=== PATIENT | male | born 1950 | race Caucasian/White ===

== ENCOUNTER → 2016-09-21 | Outpatient (CLI) | payer MEDICARE, OTHER ==
--- NOTE | 2016-09-21 16:55 | REP ---
CT MAXILLOFACIAL WITHOUT CONTRAST: 09/21/2016: Comparison: 09/30/2010. Clinical history: Chronic sinusitis. Previous turbinectomies. Findings: The noncontrast images with coronal reconstructions show prior partial ethmoidectomy, middle turbinectomy and uncinectomies. This appearance is similar to previous study. There is mucosal thickening along the medial and lateral ramon of the left maxillary antrum which is increased in thickness compared to previous study. There is minimal mucosal thickening inferiorly and medially in the right maxillary antrum. Nasal septum is deviated towards the right but very mild. There is mucosal thickening in the ethmoid air cells bilaterally. Frontal sinuses show some mucosal thickening on the right but not the left. The sphenoid sinuses show mucosal thickening anteriorly. No bony destructive lesions are noted about the sinuses, orbital floor, medial orbital ramon, orbital struts and zygomatic arches all intact. Nasal bones and the nasal spine of the maxilla intact. Orbits and contents symmetric and grossly normal. Mastoids show symmetric normal aeration. No other findings. Impression: 1. Postoperative changes and mucosal thickening of the maxillary antra as described above. The ethmoid sinuses show less mucosal thickening and there is minor mucosal thickening anteriorly in the sphenoid air cells bilaterally and the right frontal sinus posteriorly. Signed by Hiro Chery MD 09/21/2016 05:15 P
== END ==
LOC: M RAD 16:06
DX: J32.2 Chronic ethmoidal sinusitis (principal)

== ENCOUNTER → 2016-11-05 | Outpatient (CLI) | payer MEDICARE, OTHER ==
[~2016-11-05] MED LIST: CALC-195 PO; FLON1SPR; IBUP600T26 PO; MULT1TAB9 PO; SYMB16INH INH; VITA1CAP7 PO
--- NOTE | 2016-11-05 13:51 | ECGEPIP ---
Stationary ECG Study [facility] Test Date: 2016-11-05 Pat Name: FAISAL GOMEZ Department: Room: - Gender: M First Aid Nurse: INESSA : 1950 Requested By: JAVIER Klein Order Number: [id number] Reading MD: Deepak Whitlock Measurements Intervals [place] Rate: 62 P: 63 CO: 161 QRS: 48 QRSD: 89 T: 24 QT: 403 QTc: 411 Interpretive Statements Normal sinus rhythm at 62 bpm. Somewhat low voltages Nonspecific ST/T-wave abnormalities No change from 08/24/14. Electronically Signed On 11-05-2016 13:51:10 EDT by Deepak Whitlock
== END ==
LOC: M EKG 07:48
PROVIDERS: ATTEND Anesthesiology
DX: G47.30 Sleep apnea, unspecified (principal)

== ENCOUNTER → 2016-11-11 | Day surgery (SDC) | payer MEDICARE, OTHER ==
[~2016-11-11] VITALS: Ht 167.6 cm; Wt 65.8 kg
[~2016-11-11] MED LIST changes: +BUPIVACAINE HCL 0.25% 30 ML VIAL As Ordered ONE; +GLYCOPYRROLATE INJ 0.2 MG/ML 2 ML VIAL As Ordered ONE; +IBUPROFEN 400 MG TAB PO ONE; +KETOROLAC 30 MG/ML VIAL (J1885) IV PRN; +KETOROLAC 60 MG/2 ML VIAL (J1885) As Ordered ONE; +LIDOCAINE 1% SDV INJ 30 ML VIAL As Ordered ONE; +LIDOCAINE 2% INJ 100 MG/5 ML SDV (FOR ANES.) As Ordered ONE; +LR 1,000 ML IV SCH; +METOCLOPRAMIDE INJ 10MG/2ML VIAL (J2765) IV PRN; +MIDAZOLAM INJ 2 MG/2 ML VIAL (J2250) As Ordered ONE; +MORPHINE 2 MG/ML 1ML SYRINGE IV PRN; +NEOSTIGMINE 1MG/ML 5 ML SYRINGE (J2710) As Ordered ONE; +NORC1TAB4 PO; +NORCO, ANEXSIA 5/325MG TABLET (HYDROcodone/ACETAMINOPHEN) PO PRN; +ONDANSETRON 4MG/2ML VIAL (J2405) As Ordered ONE; +ONDANSETRON 4MG/2ML VIAL (J2405) IV PRN; +PERCOCET 5MG/325MG TAB PO PRN; +PROPOFOL 200 MG/20 ML VIAL As Ordered ONE; +ROCURONIUM BROMIDE 50 MG/5 ML VIAL As Ordered ONE; +fentaNYL 100 MCG/2 ML INJECTION (J3010) IV PRN; +fentaNYL 250 MCG/5 ML INJECTION (J3010) As Ordered ONE
[2016-11-11 14:05] VITALS: BP 135/85
--- NOTE | 2016-11-11 19:37 | RO ---
DATE OF PROCEDURE: 11/11/2016 PREOPERATIVE DIAGNOSIS: Bilateral inguinal hernia. POSTOPERATIVE DIAGNOSIS: Bilateral inguinal hernia. PROCEDURE: Robotic-assisted laparoscopic bilateral inguinal hernia repair, transabdominal preperitoneal hernioplasty ([place]). SURGEON: Dr. Corea. DIET SUPERVISOR: Marivel Castillo ESTIMATED BLOOD LOSS: Less than 25 mL. COMPLICATIONS: None. REMARKS: The patient has a moderate sized left indirect and small size right indirect inguinal hernia. A large Bard 3-D Max light mesh was placed on the left side. A medium size 3-D Max light mesh was placed on the right side. PROCEDURE NOTE: Mr. Guerrero is a 66-year-old gentleman who came my clinic with a symptomatic left inguinal hernia on his ultrasound study done by his primary care doctor. There was also an incidental right inguinal hernia. These were both clinically confirmed on my exam. He was advised bilateral inguinal hernia repair. This was felt to be most appropriate with a laparoscopic approach. He presents today for said repair. DESCRIPTION OF PROCEDURE: The patient received Ancef preoperatively for prophylaxis. He was then brought to the operating room, placed in the lithotomy position. General endotracheal anesthesia started without any complication. Mercer catheter placed to decompress the urinary bladder. His abdomen and groin area prepped and draped in usual sterile fashion. After surgical time-out we began our surgery. A small incision created superior to the umbilicus with a Veress needle inserted. Intraabdominal insufflation started at pressure of 15 mmHg. Using the same incision a 5 mm port was placed under direct vision of laparoscope. He was placed in slight Trendelenburg position. Left side was tilted up to further expose the more symptomatic left inguinal hernia. Two working ports were placed around the left and right side along the umbilical line. On diagnostic laparoscopy both hernias were confirmed present. The left side was containing some omentum which was easily reduced. We started with the more symptomatic side. On the left side, the peritoneum overlying the inguinal area was opened up starting at the medial umbilical ligament in an arc like fashion going towards the level of the anterior-superior iliac spine. We slowly peeled off the peritoneum exposing the preperitoneal space, working toward the medial side where we further exposed to the pubic tubercle. The hernia sac was reduced. There was small cord lipoma along the inside of the hernia, which was reduced and removed. We furthered the dissection to accommodate the mesh down towards the iliopubic tract inferiorly. After checking for hemostasis, a large 3-D Max light mesh was placed onto the preperitoneal space adequately covering the hernia defect. This was secured into the pubic tubercle using a single stitch of #2-0 Vicryl. Again we checked for hemostasis. The peritoneum was then closed using #2-0 V-Loc in a running fashion. In similar fashion, the preperitoneal space was dissected on the right side and dissected widely from the pubic tubercle and symphysis pubis medially to the level of anterior-superior iliac spine, laterally and the iliopubic tract inferiorly. The hernia sac was easily reduced. There was nothing inside the hernia defect. I chose a medium sized mesh as this was a smaller hernia. Again, secured along the pubic tubercle and Octavio's ligament with a #2-0 Vicryl then we closed the peritoneum overlying the area with #2-0 V-Loc. Prior to coming out we removed cord lipoma into a 5 mm Endo bag and retrieved this outside. I scrubbed back in. The abdomen was then deflated. All ports removed. The incisions were closed with #4-0 Monocryl in subcuticular fashion. Dermabond was used for wound coverage. Bilateral ilioinguinal blocks were placed also local anesthesia at the incision lines. The patient promptly awakened, extubated, as well as catheter removed and brought to recovery room, stable.
== END | disposition home or self-care (01) ==
LOC: M SDC 05:31
PROVIDERS: ATTEND Surgery
DX: K40.20 Bilateral inguinal hernia, without obstruction or gangrene, not specified as recurrent (principal); J45.909 Unspecified asthma, uncomplicated; J32.9 Chronic sinusitis, unspecified; J42 Unspecified chronic bronchitis; E78.00 Pure hypercholesterolemia, unspecified; G47.33 Obstructive sleep apnea (adult) (pediatric); R06.83 Snoring; Z79.899 Other long term (current) drug therapy
CPT/HCPCS: 49650; 88302; C1781; J0690; J1885; J2250; J2405; J2710; J3010

== ENCOUNTER → 2017-07-05 | Outpatient (CLI) | payer MEDICARE, OTHER ==
[~2017-07-05] MED LIST changes: -BUPIVACAINE HCL 0.25% 30 ML VIAL As Ordered ONE; -GLYCOPYRROLATE INJ 0.2 MG/ML 2 ML VIAL As Ordered ONE; +IBUP-1022 PO; -IBUP600T26 PO; -IBUPROFEN 400 MG TAB PO ONE; -KETOROLAC 30 MG/ML VIAL (J1885) IV PRN; -KETOROLAC 60 MG/2 ML VIAL (J1885) As Ordered ONE; -LIDOCAINE 1% SDV INJ 30 ML VIAL As Ordered ONE; -LIDOCAINE 2% INJ 100 MG/5 ML SDV (FOR ANES.) As Ordered ONE; -LR 1,000 ML IV SCH; -METOCLOPRAMIDE INJ 10MG/2ML VIAL (J2765) IV PRN; -MIDAZOLAM INJ 2 MG/2 ML VIAL (J2250) As Ordered ONE; -MORPHINE 2 MG/ML 1ML SYRINGE IV PRN; -NEOSTIGMINE 1MG/ML 5 ML SYRINGE (J2710) As Ordered ONE; -NORCO, ANEXSIA 5/325MG TABLET (HYDROcodone/ACETAMINOPHEN) PO PRN; -ONDANSETRON 4MG/2ML VIAL (J2405) As Ordered ONE; -ONDANSETRON 4MG/2ML VIAL (J2405) IV PRN; -PERCOCET 5MG/325MG TAB PO PRN; -PROPOFOL 200 MG/20 ML VIAL As Ordered ONE; -ROCURONIUM BROMIDE 50 MG/5 ML VIAL As Ordered ONE; -fentaNYL 100 MCG/2 ML INJECTION (J3010) IV PRN; -fentaNYL 250 MCG/5 ML INJECTION (J3010) As Ordered ONE
--- NOTE | 2017-07-05 18:48 | REP ---
MAXILLOFACIAL CT WITHOUT CONTRAST: HISTORY: Chronic sinusitis. COMPARISON: 09/21/2016 The patient is status-post bilateral partial ethmoidectomy, middle nasal turbinectomy and bilateral uncinectomy. Minimal mucosal thickening is present in the maxillary and right ethmoid sinuses. The remaining sinuses are clear. The middle and inferior nasal turbinates are partially paradoxical. There is minimal deviation of the nasal septum to the right. The cribriform plate, medially ramon of the orbits and optic canals are intact. The carotid canals form a segment of the posterolateral ramon of the sphenoid sinus. The sphenoid sinus septum inserts into the left internal carotid canal wall. IMPRESSION: 1. Postoperative change as described above. 2. Sinus mucosal thickening as described above. Signed by Zeke Chapman MD 07/05/2017 06:52 P
== END ==
LOC: M RAD 17:26
PROVIDERS: ATTEND Specialist
DX: J32.0 Chronic maxillary sinusitis (principal)

== ENCOUNTER → 2017-12-12 | Outpatient (CLI) | payer MEDICARE, OTHER ==
[2017-12-12 11:38] LABS: HEMATOCRIT 46.5 % (42.0-52.0); HEMOGLOBIN 15.9 g/dl (13.5-17.5); MEAN CORPUSCULAR HGB CONC 34.2 g/dl (32.0-36.5); MEAN CORPUSCULAR VOLUME 93.6 fl (80.0-96.0); PLATELET COUNT, AUTOMATED 311 10^3/uL (150-450); RED BLOOD COUNT 4.97 10^6/uL (4.30-6.10); RED CELL DISTRIBUTION WIDTH 12.3 % (11.5-14.5)
[2017-12-12 12:37] LABS: TESTOSTERONE 687 NG/DL (241-827)
[2017-12-12 12:50] LABS: ALBUMIN 3.7 GM/DL (3.2-5.2); ALBUMIN/GLOBULIN RATIO 1.23 (1.00-1.93); ALKALINE PHOSPHATASE 73 U/L (45-117); ALT/SGPT 34 U/L (12-78); ANION GAP 5 MEQ/L (8-16); AST/SGOT 25 U/L (7-37); BILIRUBIN,TOTAL 0.6 MG/DL (0.2-1.0); BLOOD UREA NITROGEN 11 MG/DL (7-18); CALCIUM LEVEL 8.7 MG/DL (8.8-10.2); CARBON DIOXIDE LEVEL 30 MEQ/L (21-32); CHLORIDE LEVEL 109 MEQ/L (98-107); CHOLESTEROL LEVEL 187 MG/DL (<200); CHOLESTEROL RISK RATIO 3.596 (<5); CREATININE FOR GFR 1.17 MG/DL (0.70-1.30); GLOMERULAR FILTRATION RATE > 60.0 (>49); GLUCOSE, FASTING 53 MG/DL (70-100); HDL CHOLESTEROL 52 MG/DL (>40); LDL CHOLESTEROL 113.6 MG/DL (<100); NON-HDL-C 135 MG/DL; POTASSIUM SERUM 4.7 MEQ/L (3.5-5.1); SODIUM LEVEL 144 MEQ/L (136-145); TOTAL PROTEIN 6.7 GM/DL (6.4-8.2); TRIGLYCERIDES LEVEL 107 MG/DL (<150)
[2017-12-12 14:44] LABS: ESTIMATED AVERAGE GLUCOSE 120 MG/DL (60-110); HEMOGLOBIN A1c 5.8 %
== END ==
LOC: M LAB 10:56
DX: J44.9 Chronic obstructive pulmonary disease, unspecified (principal); R53.83 Other fatigue; Z79.899 Other long term (current) drug therapy
CPT/HCPCS: 71046

== ENCOUNTER 2018-02-22 07:36 | Day surgery (SDC) | payer MEDICARE, OTHER ==
[~2018-02-22 07:36] MED LIST changes: -CALC-195 PO; -FLON1SPR; -IBUP-1022 PO; +MIDAZOLAM INJ 2 MG/2 ML VIAL (J2250) As Ordered; -MULT1TAB9 PO; -NORC1TAB4 PO; -SYMB16INH INH; -VITA1CAP7 PO
[2018-02-22] MEDS: PHENYLEPHRINE 2.5% OPHTH SOL 2ML OS (09:00)
[2018-02-22] MEDS: TROPICAMIDE 1% OPHTH SOLN 2ML OS (09:00)
[2018-02-22] MEDS: OFLOXACIN 0.3 % (OCUFLOX) OPTH SOL 5ML OS (09:00)
[2018-02-22] MEDS: PROPARACAINE 0.5% OPHTH SOL 15ML OS (09:12)
[2018-02-22] MEDS: POVIDONE-IODINE 5% OPHTH PREP SOL 30ML As Ordered (09:22)
[2018-02-22] MEDS ORDERED: fentaNYL 100 MCG/2 ML INJECTION (J3010) As Ordered (09:27)
[2018-02-22] MEDS: LIDOCAINE 0.75%/EPINEPHRINE 0.025% IN BSS 1ML SYR INTRACAMERAL (OR ONLY) As Ordered (09:29)
[2018-02-22] MEDS: DUOVISC (0.50ML VISCOAT/0.55ML PROVISC) OPHTH KIT As Ordered (09:29)
[2018-02-22] MEDS: BALANCED SALT IRRIGATION SOLUTION 500ML BAG (FOR OR EYE MACHINE) As Ordered (09:29)
[2018-02-22] MEDS: CEFUROXIME 1MG/0.1ML INTRACAMERAL INJ As Ordered (09:29)
== END 2018-02-22 10:40 | disposition home or self-care (01) ==
LOC: M SDC 07:36
DX: H25.12 Age-related nuclear cataract, left eye (principal); J45.909 Unspecified asthma, uncomplicated; E78.00 Pure hypercholesterolemia, unspecified; G43.909 Migraine, unspecified, not intractable, without status migrainosus; R06.83 Snoring; J32.9 Chronic sinusitis, unspecified; G47.33 Obstructive sleep apnea (adult) (pediatric); Z79.899 Other long term (current) drug therapy
CPT/HCPCS: 66984

== ENCOUNTER → 2019-01-10 | Outpatient (CLI) | payer MEDICARE, OTHER ==
[~2019-01-10] MED LIST changes: +AUGM875T28 PO; +CALC-195 PO; +D-3-50003 PO; +FLON1SPR; +IBUP-1022 PO; +IBUP200C25 PO; +IBUP80TA PO; -MIDAZOLAM INJ 2 MG/2 ML VIAL (J2250) As Ordered; +MULT1TAB9 PO; +NORC1TAB7 PO; +PROAAER10; +SYMB16INH INH; +SYMBICORT
--- NOTE | 2019-01-10 15:03 | REP ---
Clinical: Asthma. Technique: PA and lateral. Comparison: 12/12/2017. Findings: Mediastinum and cardiac silhouette are within normal limits and stable. Chronic bibasilar changes are appreciated and subtle atelectasis cannot be excluded (left greater than right). No discrete focal consolidation, effusion, or pneumothorax. Skeletal structures intact. Impression: Chronic stable changes. Cannot exclude subtle atelectasis. Electronically Signed by Gustavo Arredondo MD 01/10/2019 02:54 P
== END ==
LOC: M SMT 14:43
PROVIDERS: ATTEND Internal Medicine Pulmonary Disease
DX: J45.41 Moderate persistent asthma with (acute) exacerbation (principal); R91.8 Other nonspecific abnormal finding of lung field

== ENCOUNTER → 2020-09-23 | Outpatient (CLI) | payer MEDICARE, OTHER ==
--- NOTE | 2020-09-23 15:36 | REP ---
INDICATION: ACUTE SINUSITIS. COMPARISON: Comparison maxillofacial CT study 05 July 2017.. TECHNIQUE: Helical scanning is acquired and 2 mm axial images re-formatted. Coronal MPR images are generated and reviewed. FINDINGS: There are minimal 1-2 mm mucosal thickening changes in the maxillary sinuses bilaterally. Widely patent nasoantral window is seen status post uncinectomy. Nasal ethmoid recesses appear clear. There is no mucosal thickening or opacification of the frontal sinuses on either side. Ethmoid air cells are clear. There is minimal mucosal thickening along the anterior wall of the right sphenoid sinus. Bony nasal septum is midline. Nasal turbinates soft tissues are unremarkable. No nasal polyp is seen. No intraorbital mass is observed. Deep facial soft tissues are unremarkable. The visualized intracranial soft tissues are unremarkable. IMPRESSION: Status post bilateral uncinectomy. Minimal sinus mucosal thickening changes as above. <Electronically signed by Thom Campos > 09/23/20 [id number]
== END ==
LOC: M RAD 14:14
PROVIDERS: ATTEND Specialist
DX: J01.90 Acute sinusitis, unspecified (principal)

== ENCOUNTER → 2021-06-05 | Outpatient (CLI) | payer MEDICARE, OTHER ==
[2021-06-05 09:22] LABS: ALBUMIN 3.4 GM/DL (3.2-5.2); BILIRUBIN,DIRECT 0.1 MG/DL (0.0-0.2); BILIRUBIN,TOTAL 0.4 MG/DL (0.2-1.0); TOTAL PROTEIN 6.2 GM/DL (6.4-8.2)
== END ==
LOC: M LAB 08:10
PROVIDERS: ATTEND Physician Assistant
DX: B35.3 Tinea pedis (principal)

== ENCOUNTER → 2021-10-07 | Outpatient (CLI) | payer MEDICARE, OTHER | LOC: M RAD 08:14 | PROVIDERS: ATTEND Orthopaedic Surgery | DX: M79.661 Pain in right lower leg (principal) ==

== ENCOUNTER → 2021-12-07 | Outpatient (CLI) | payer MEDICARE, OTHER ==
[2021-12-07 07:22] LABS: HEMATOCRIT 41.5 % (42.0-52.0); HEMOGLOBIN 13.9 g/dl (13.5-17.5); MEAN CORPUSCULAR HGB CONC 33.5 g/dl (32.0-36.5); MEAN CORPUSCULAR VOLUME 98.6 fl (80.0-96.0); PLATELET COUNT, AUTOMATED 217 10^3/uL (150-450); RED BLOOD COUNT 4.21 10^6/uL (4.30-6.10); WHITE BLOOD COUNT 5.4 10^3/uL (4.0-10.0)
[2021-12-07 07:53] LABS: ALBUMIN 3.4 GM/DL (3.2-5.2); ALT/SGPT 20 U/L (12-78); BILIRUBIN,TOTAL 0.8 MG/DL (0.2-1.0); BLOOD UREA NITROGEN 17 MG/DL (7-18); CALCIUM LEVEL 9.2 MG/DL (8.8-10.2); CARBON DIOXIDE LEVEL 28 MEQ/L (21-32); CHLORIDE LEVEL 107 MEQ/L (98-107); CHOLESTEROL LEVEL 172 MG/DL (<200); CREATININE FOR GFR 0.94 MG/DL (0.70-1.30); GLOMERULAR FILTRATION RATE > 60.0 (>42); GLUCOSE, FASTING 98 MG/DL (70-100); HDL CHOLESTEROL 49 MG/DL (>40); LDL CHOLESTEROL 114 MG/DL (<100); NON-HDL-C 123 MG/DL; POTASSIUM SERUM 3.9 MEQ/L (3.5-5.1); SODIUM LEVEL 142 MEQ/L (136-145); TOTAL PROTEIN 6.1 GM/DL (6.4-8.2); TRIGLYCERIDES LEVEL 44 MG/DL (<150)
== END ==
LOC: M LAB 06:13
PROVIDERS: ATTEND Family Medicine
DX: Z00.00 Encounter for general adult medical examination without abnormal findings (principal); Z79.899 Other long term (current) drug therapy

== ENCOUNTER → 2022-02-09 | Outpatient (REF) | payer MEDICARE, OTHER | LOC: M LAB REF 16:48 | PROVIDERS: ATTEND Otolaryngology | DX: R07.0 Pain in throat (principal) ==

== ENCOUNTER → 2022-07-23 | Outpatient (CLI) | payer MEDICARE, OTHER | LOC: M RAD 11:27 | PROVIDERS: ATTEND Family Medicine | DX: J45.909 Unspecified asthma, uncomplicated (principal) ==

== ENCOUNTER 2023-02-13 09:06 | Day surgery (SDC) | payer MEDICARE, OTHER ==
[~2023-02-13] VITALS: Ht 167.6 cm; Wt 70.3 kg
[~2023-02-13 09:06] MED LIST changes: +AMOX875T PO; +NS 1,000 ML IV ONE; +PRED10PA2 PO; +PROA1AER2 INH
[2023-02-13] MEDS ORDERED: propofoL 200 MG/20 ML VIAL As Ordered ONE (10:55)
[2023-02-13] MEDS ORDERED: KETOROLAC 60MG 2ML VIAL As Ordered ONE (10:57)
[2023-02-13 11:15] VITALS: TEMP 96.5
[2023-02-13 11:49] VITALS: BP 173/70; O2SAT 98
== END 2023-02-13 11:51 | disposition home or self-care (01) ==
LOC: M OPP 09:06
PROVIDERS: ATTEND Internal Medicine Gastroenterology
DX: Z12.11 Encounter for screening for malignant neoplasm of colon (principal); K64.0 First degree hemorrhoids; K57.30 Diverticulosis of large intestine without perforation or abscess without bleeding; Z79.51 Long term (current) use of inhaled steroids; Z79.52 Long term (current) use of systemic steroids; Z79.1 Long term (current) use of non-steroidal anti-inflammatories (NSAID); Z79.899 Other long term (current) drug therapy; Z91.018 Allergy to other foods
CPT/HCPCS: G0121; J1885

== ENCOUNTER → 2024-03-01 | Outpatient (CLI) | payer MEDICARE, OTHER ==
[~2024-03-01] MED LIST changes: +CALC1CAP34 PO; +COLL1CAP PO; +D31000CA4 PO; +GABA-1171 PO; +METH-1164 PO; +NAPR500T6 PO; -NS 1,000 ML IV ONE; +THERTAB52 PO
[2024-03-01 13:13] LABS: BASO % 0.4 % (0.0-1.0); EOS # 0.1 10^3/uL (0.0-0.5); EOS % 1.6 % (0.0-3.0); HEMATOCRIT 44.3 % (42.0-52.0); HEMOGLOBIN 15.1 g/dl (13.5-17.5); LYMPH # 0.5 10^3/uL (1.5-5.0); LYMPH % 6.7 % (24.0-44.0); MEAN CORPUSCULAR HEMOGLOBIN 32.3 pg (27.0-33.0); MEAN CORPUSCULAR HGB CONC 34.1 g/dl (32.0-36.5); MEAN CORPUSCULAR VOLUME 94.9 fl (80.0-96.0); MONO # 0.2 10^3/uL (0.0-0.8); MONO % 3.1 % (2.0-8.0); NEUTROPHILS # 6.2 10^3/uL (1.5-8.5); NEUTROPHILS % 87.9 % (36.0-66.0); PLATELET COUNT, AUTOMATED 218 10^3/uL (150-450); RED BLOOD COUNT 4.67 10^6/uL (4.30-6.10)
[2024-03-01 13:41] LABS: ALBUMIN 3.9 G/DL (3.2-5.2); ALKALINE PHOSPHATASE 75 U/L (46-116); ALT/SGPT 31 U/L (7.0-40); AST/SGOT 21 U/L (<34); BILIRUBIN,TOTAL 0.5 MG/DL (0.3-1.2); BLOOD UREA NITROGEN 18 MG/DL (9-23); CALCIUM LEVEL 9.7 MG/DL (8.3-10.6); CARBON DIOXIDE LEVEL 28 MMOL/L (20-31); CHLORIDE LEVEL 106 MMOL/L (98-107); CREATININE FOR GFR 0.92 MG/DL (0.70-1.30); GLOMERULAR FILTRATION RATE > 60.0 (>42); GLUCOSE, FASTING 101 MG/DL (74-106); POTASSIUM SERUM 4.1 MMOL/L (3.5-5.1); SODIUM LEVEL 139 MMOL/L (136-145); TOTAL PROTEIN 6.5 G/DL (5.7-8.2)
== END ==
LOC: M EKG 12:04
PROVIDERS: ATTEND Family Medicine
DX: Z01.818 Encounter for other preprocedural examination (principal); I45.19 Other right bundle-branch block; R94.31 Abnormal electrocardiogram [ECG] [EKG]

== ENCOUNTER 2024-03-14 07:52 | Day surgery (SDC) | payer MEDICARE, OTHER ==
[~2024-03-14] VITALS: Ht 167.6 cm; Wt 70.5 kg
[2024-03-14] MEDS ORDERED: LR 1,000 ML IV SCH (08:00)
[2024-03-14] MEDS ORDERED: LIDOCAINE 2% 100MG/5ML SDV (FOR ANES.) As Ordered ONE (09:04)
[2024-03-14] MEDS ORDERED: propofoL 200 MG/20 ML VIAL As Ordered ONE (09:04)
[2024-03-14] MEDS ORDERED: ACETAMINOPHEN 1000MG 100ML IV BAG As Ordered ONE (09:06)
[2024-03-14] MEDS ORDERED: fentaNYL 100 MCG/2 ML INJECTION As Ordered ONE (09:43)
[2024-03-14] MEDS: LIDOCAINE 1% SDV 30ML VIAL As Ordered ONE (10:00)
[2024-03-14] MEDS: ceFAZolin SOD 2 GM in IV 1 EA IV ONE (10:05)
[2024-03-14] MEDS ORDERED: ONDANSETRON 4MG 2ML VIAL As Ordered ONE (10:15)
[2024-03-14] MEDS ORDERED: ONDANSETRON 4MG 2ML VIAL IV PRN (11:30)
[2024-03-14] MEDS ORDERED: fentaNYL 100 MCG/2 ML INJECTION IV PRN (11:30)
[2024-03-14] MEDS ORDERED: oxyCODONE 5MG TAB PO PRN (11:30)
[2024-03-14 12:30] VITALS: BP 125/65; TEMP 98.1; O2SAT 95
== END 2024-03-14 12:30 | disposition home or self-care (01) ==
LOC: M SDC 07:52
PROVIDERS: ATTEND Podiatrist Foot & Ankle Surgery
DX: M20.12 Hallux valgus (acquired), left foot (principal); M21.612 Bunion of left foot; J45.909 Unspecified asthma, uncomplicated; G47.30 Sleep apnea, unspecified; Z85.828 Personal history of other malignant neoplasm of skin; Z79.899 Other long term (current) drug therapy; G43.909 Migraine, unspecified, not intractable, without status migrainosus; Z79.51 Long term (current) use of inhaled steroids; Z91.018 Allergy to other foods
CPT/HCPCS: 28299; 76000; C1713; J0131; J0665; J0690; J1100; J2405; J3010

== ENCOUNTER → 2025-04-14 | Outpatient (CLI) | payer MEDICARE, OTHER ==
[~2025-04-14] MED LIST changes: -IBUP-1022 PO; +IBUP600T42 PO; +NAPR-1405 PO; -NAPR500T6 PO
== END ==
LOC: M CARPUL 09:21
PROVIDERS: ATTEND Family Medicine
DX: J45.40 Moderate persistent asthma, uncomplicated (principal)